=== PATIENT | female | born 1960 | race Two or more races ===

== ENCOUNTER 2023-01-21 12:34 | Inpatient (IN) | payer OTHER ==
[~2023-01-21] VITALS: Ht 154.9 cm; Wt 74.0 kg
[2023-01-21] MEDS: DEXTROSE (50%) 50ML SYRG IV ONE ×2 (12:47→13:04)
[2023-01-21 13:11] VITALS: PULSE 85; RESP 20; O2SAT 98
[2023-01-21 13:15] LABS: Basophils # (auto) 0 10 ^3/uL (0-0.2); Basophils % (auto) 0.1 % (0.0-2.0); Eosinophils # (auto) 0 10 ^3/uL (0-0.8); Eosinophils % (auto) 0.2 % (0.0-7.0); Hematocrit 33.5 % (36.0-46.0); Hemoglobin 10.6 g/dL (12.2-16.2); Lymphocytes # (auto) 2.9 10 ^3/uL (0.4-5.4); Lymphocytes % (auto) 18.5 % (10.0-50.0); Mean Corpuscular Hemoglobin 27.4 pg (28.0-32.0); Mean Corpuscular Hgb Conc. 31.5 g/dL (32.0-36.0); Monocytes # (auto) 1.1 10 ^3/uL (0-1.3); Monocytes % (auto) 7.3 % (0.0-12.0); Neutrophils # (auto) 11.5 10 ^3/uL (1.6-8.6); Neutrophils % (auto) 73.9 % (37.0-80.0); Red Blood Cells 3.86 10^6/uL (4.0-5.20); Red Cell Distribution Width 15.5 % (11.8-14.3); White Blood Cell 15.6 10^3/uL (4.4-10.8)
[2023-01-21] MEDS ORDERED: DEXTROSE 10% 1,000 ML IV ONE (13:15)
[2023-01-21] MEDS ORDERED: ACCU-CHEK COMFORT CURVE STRIP VI ONE (13:15)
[2023-01-21 13:32] LABS: Albumin 2.3 g/dL (3.4-5.0); Calcium 8.1 mg/dL (8.5-10.1); Potassium 3.9 mmol/L (3.5-5.1)
[2023-01-21 13:37] LABS: BUN/Creatinine Ratio 12.5 (10.0-20.0); Bilirubin, Total 0.3 mg/dL (0.2-1.0); Total Protein 7.1 g/dL (6.4-8.2)
[2023-01-21] MEDS ORDERED: ONDANSETRON HCL 4 MG/2 ML VIAL IV ONE (14:00)
[2023-01-21] MEDS ORDERED: ASPI1TAB20 PO (14:04)
[2023-01-21] MEDS ORDERED: ENAL1TAB48 PO (14:04)
[2023-01-21] MEDS ORDERED: METO25TA5 PO (14:04)
[2023-01-21] MEDS ORDERED: SIMV20TA20 PO (14:05)
[2023-01-21] MEDS ORDERED: GLIP10TA9 PO (14:05)
[2023-01-21] MEDS ORDERED: ENOXAPARIN SOD 80 MG/0.8ML SYRINGE SC ONE (14:30)
[2023-01-21 15:10] LABS: Urine Bacteria FEW /hpf (None Seen); Urine Blood Negative /uL (Negative); Urine Clarity Clear (Clear); Urine Color Colorless (Yellow); Urine Protein, UAD 1+ (Negative); Urine Specific Gravity 1.005 (1.001-1.035); Urine Urobilinogen Normal (Negative); Urine WBC 1 /hpf (0 - 5); Urine pH 5.5 (5.0-8.0)
[2023-01-21] MEDS ORDERED: metroNIDAZOLE 500MG/100ML 100 ML IV ONE (16:15)
[2023-01-21] MEDS ORDERED: SODIUM CHLORIDE 0.9% 500 ML IV ONE (16:15)
[2023-01-21] MEDS ORDERED: DEXTROSE (50%) 50ML SYRG IV PRN (16:15)
[2023-01-21] MEDS ORDERED: SODIUM CHLORIDE 0.9% 1,000 ML IV ONE (16:15)
[2023-01-21] MEDS ORDERED: PANTOPRAZOLE 40 MG/10 ML VIAL INJ IV ONE (16:30)
[2023-01-21 17:33] LABS: Cholesterol 93 mg/dL (< 200)
[2023-01-21 17:35] LABS: HDL Cholesterol 39 mg/dL (40-59); LDL Cholesterol 48 mg/dL (< 100); Triglycerides 57 mg/dL (< 150)
[2023-01-21] MEDS: InsuLIN REG 1unit/0.01ml Soln (100units/ml) SC SCH ×2 (17:57→21:19)
[2023-01-21] MEDS: SODIUM CHLORIDE 0.9% 1,000 ML IV SCH (17:59)
[2023-01-21] MEDS: ACCU-CHEK COMFORT CURVE STRIP VI SCH ×2 (17:59→21:18)
[2023-01-21 19:16] LABS: INR 1.11 (0.9-1.15); Prothrombin Time 11.6 sec (9.3-11.8)
[2023-01-21 19:50] VITALS: PULSE 77; RESP 18; O2SAT 96
[2023-01-21] MEDS: metroNIDAZOLE 500MG/100ML 100 ML IV SCH (20:41)
[2023-01-22 05:41] LABS: Basophils # (auto) 0 10 ^3/uL (0-0.2); Basophils % (auto) 0.3 % (0.0-2.0); Eosinophils # (auto) 0.1 10 ^3/uL (0-0.8); Eosinophils % (auto) 0.7 % (0.0-7.0); Hematocrit 32.5 % (36.0-46.0); Hemoglobin 10.2 g/dL (12.2-16.2); Lymphocytes # (auto) 2.5 10 ^3/uL (0.4-5.4); Lymphocytes % (auto) 20.5 % (10.0-50.0); Mean Corpuscular Hgb Conc. 31.3 g/dL (32.0-36.0); Mean Corpuscular Volume 86.2 fL (80.0-100.0); Monocytes % (auto) 8.1 % (0.0-12.0); Neutrophils # (auto) 8.8 10 ^3/uL (1.6-8.6); Neutrophils % (auto) 70.4 % (37.0-80.0); Red Blood Cells 3.77 10^6/uL (4.0-5.20); Red Cell Distribution Width 15.6 % (11.8-14.3); White Blood Cell 12.4 10^3/uL (4.4-10.8)
[2023-01-22 06:01] LABS: Calcium 8.3 mg/dL (8.5-10.1); Potassium 4.4 mmol/L (3.5-5.1)
[2023-01-22 06:05] LABS: BUN/Creatinine Ratio 11.2 (10.0-20.0); Bilirubin, Total 0.3 mg/dL (0.2-1.0); Total Protein 7.1 g/dL (6.4-8.2)
[2023-01-22] MEDS: metroNIDAZOLE 500MG/100ML 100 ML IV SCH ×3 (06:11→22:59)
[2023-01-22] MEDS: InsuLIN REG 1unit/0.01ml Soln (100units/ml) SC SCH ×4 (06:55→22:00)
[2023-01-22] MEDS: ACCU-CHEK COMFORT CURVE STRIP VI SCH ×4 (06:55→22:57)
[2023-01-22 08:10] VITALS: PULSE 80; RESP 14; O2SAT 99
[2023-01-22] MEDS: ATORVASTATIN 20 MG TAB PO SCH ×2 (10:00→22:00)
[2023-01-22] MEDS: PANTOPRAZOLE 40 MG/10 ML VIAL INJ IV SCH (12:15)
[2023-01-22] MEDS: ENOXAPARIN SOD 40 MG/0.4 ML SYRINGE SC SCH (12:15)
[2023-01-22] MEDS: ASPirin-EC 81 mg tab PO SCH (12:16)
[2023-01-22] MEDS: METOPROLOL TARTRATE 25 MG TAB PO SCH (12:16)
[2023-01-22] MEDS: SODIUM CHLORIDE 0.9% 1,000 ML IV SCH (12:17)
[2023-01-22 22:06] VITALS: BP 136/59; PULSE 77; RESP 20; TEMP 94.4; O2SAT 96
[2023-01-23] VITALS (7 sets, daily range): BP systolic 136–141; BP diastolic 54–91; PULSE 67–84; RESP 17–20; TEMP 97.9–98.2; O2SAT 97–99
[2023-01-23] MEDS: SODIUM CHLORIDE 0.9% 1,000 ML IV SCH ×2 (01:35→18:15)
[2023-01-23] MEDS: metroNIDAZOLE 500MG/100ML 100 ML IV SCH ×3 (06:32→21:40)
[2023-01-23] MEDS: InsuLIN REG 1unit/0.01ml Soln (100units/ml) SC SCH ×4 (06:36→21:37)
[2023-01-23] MEDS: ACCU-CHEK COMFORT CURVE STRIP VI SCH ×4 (06:36→21:37)
[2023-01-23 09:03] LABS: Basophils # (auto) 0.1 10 ^3/uL (0-0.2); Basophils % (auto) 0.7 % (0.0-2.0); Eosinophils # (auto) 0.2 10 ^3/uL (0-0.8); Hematocrit 31.1 % (36.0-46.0); Hemoglobin 9.9 g/dL (12.2-16.2); Lymphocytes # (auto) 2.4 10 ^3/uL (0.4-5.4); Lymphocytes % (auto) 26.8 % (10.0-50.0); Mean Corpuscular Hemoglobin 27.5 pg (28.0-32.0); Mean Corpuscular Hgb Conc. 31.9 g/dL (32.0-36.0); Mean Corpuscular Volume 86.3 fL (80.0-100.0); Monocytes # (auto) 0.7 10 ^3/uL (0-1.3); Monocytes % (auto) 7.2 % (0.0-12.0); Neutrophils # (auto) 5.7 10 ^3/uL (1.6-8.6); Neutrophils % (auto) 63.3 % (37.0-80.0); Nucleated Red Blood Cells % 0.1 %; Red Blood Cells 3.61 10^6/uL (4.0-5.20); Red Cell Distribution Width 15.7 % (11.8-14.3); White Blood Cell 9.1 10^3/uL (4.4-10.8)
[2023-01-23 09:35] LABS: Calcium 8.4 mg/dL (8.5-10.1); Potassium 4.3 mmol/L (3.5-5.1)
[2023-01-23 09:37] LABS: BUN/Creatinine Ratio 16.5 (10.0-20.0)
[2023-01-23] MEDS: cefTRIAXone 1GM/50ML D5W 50 ML IV SCH (09:37)
[2023-01-23] MEDS: ENOXAPARIN SOD 40 MG/0.4 ML SYRINGE SC SCH (09:37)
[2023-01-23] MEDS: PANTOPRAZOLE 40 MG/10 ML VIAL INJ IV SCH (09:37)
[2023-01-23] MEDS: METOPROLOL TARTRATE 25 MG TAB PO SCH (09:46)
[2023-01-23] MEDS: ASPirin-EC 81 mg tab PO SCH (09:46)
[2023-01-23] MEDS: ATORVASTATIN 20 MG TAB PO SCH (21:39)
[2023-01-24 05:00] VITALS: BP 126/75; PULSE 92; RESP 18; TEMP 97.7; O2SAT 99
[2023-01-24] MEDS: ACCU-CHEK COMFORT CURVE STRIP VI SCH ×4 (05:19→22:00)
[2023-01-24] MEDS: InsuLIN REG 1unit/0.01ml Soln (100units/ml) SC SCH ×4 (05:19→23:17)
[2023-01-24] MEDS: metroNIDAZOLE 500MG/100ML 100 ML IV SCH ×3 (05:32→21:18)
[2023-01-24 06:35] LABS: INR 1.1 (0.9-1.15); Partial Thromboplastin Time 27.7 SEC (24.5-34.5); Prothrombin Time 11.5 sec (9.3-11.8)
[2023-01-24 07:53] LABS: Monocytes # (auto) 0.6 10 ^3/uL (0-1.3); Red Blood Cells 4.22 10^6/uL (4.0-5.20)
[2023-01-24 07:55] LABS: Basophils # (auto) 0 10 ^3/uL (0-0.2); Basophils % (auto) 0.5 % (0.0-2.0); Eosinophils # (auto) 0.1 10 ^3/uL (0-0.8); Eosinophils % (auto) 1.1 % (0.0-7.0); Hematocrit 36.6 % (36.0-46.0); Hemoglobin 11.8 g/dL (12.2-16.2); Lymphocytes # (auto) 4.3 10 ^3/uL (0.4-5.4); Lymphocytes % (auto) 43.2 % (10.0-50.0); Mean Corpuscular Hemoglobin 27.9 pg (28.0-32.0); Mean Corpuscular Hgb Conc. 32.1 g/dL (32.0-36.0); Mean Corpuscular Volume 86.8 fL (80.0-100.0); Monocytes % (auto) 5.9 % (0.0-12.0); Neutrophils # (auto) 4.9 10 ^3/uL (1.6-8.6); Neutrophils % (auto) 49.3 % (37.0-80.0); Nucleated Red Blood Cells % 0.2 %; Red Cell Distribution Width 16.2 % (11.8-14.3)
[2023-01-24 07:56] LABS: Albumin 2.6 g/dL (3.4-5.0); Calcium 8.9 mg/dL (8.5-10.1)
[2023-01-24 07:59] LABS: BUN/Creatinine Ratio 15.5 (10.0-20.0); Bilirubin, Total 0.3 mg/dL (0.2-1.0); Total Protein 8.5 g/dL (6.4-8.2)
[2023-01-24 08:00] VITALS: PULSE 78; RESP 20
[2023-01-24] MEDS: PANTOPRAZOLE 40 MG/10 ML VIAL INJ IV SCH (09:14)
[2023-01-24] MEDS: METOPROLOL TARTRATE 25 MG TAB PO SCH (09:14)
[2023-01-24] MEDS: cefTRIAXone 1GM/50ML D5W 50 ML IV SCH (09:14)
[2023-01-24] MEDS: ASPirin-EC 81 mg tab PO SCH (10:00)
[2023-01-24] MEDS: ENOXAPARIN SOD 40 MG/0.4 ML SYRINGE SC SCH (10:00)
[2023-01-24 11:10] VITALS: BP 166/76; PULSE 78; RESP 20; TEMP 97.9; O2SAT 95
[2023-01-24] MEDS: SODIUM CHLORIDE 0.9% 1,000 ML IV SCH (11:13)
[2023-01-24 11:56] VITALS: BP 166/76; PULSE 78; RESP 20; TEMP 97.9; O2SAT 95
[2023-01-24] MEDS ORDERED: LIDOCAINE W/ EPINEPHRINE 1% 20ML VIAL ONE (12:05)
[2023-01-24] MEDS ORDERED: BUPIVACAINE 0.25% INJ 50ML VIAL ONE (12:05)
[2023-01-24] MEDS ORDERED: ACCU-CHEK COMFORT CURVE STRIP VI ONE (12:45)
[2023-01-24] MEDS ORDERED: HYDROmorphone HCL 2 MG/ML VL/or syr IV PRN (12:45)
[2023-01-24] MEDS ORDERED: METOCLOPRAMIDE HCL 5MG/ml INJ 2ml VIAL IV PRN (12:45)
[2023-01-24] MEDS ORDERED: MORPHINE SULFATE INJ 2 MG/ml SYRG IV PRN (12:45)
[2023-01-24] MEDS ORDERED: POVIDONE IODINE 10 % TOPICAL OINT 30GM TOP ONE (14:01)
[2023-01-24] MEDS: HYDROmorphone HCL 2 MG/ML VL/or syr IV PRN ×2 (14:35→14:48)
[2023-01-24] MEDS ORDERED: HYDROmorphone HCL 2 MG/ML VL/or syr IV ONE ×2 (14:58→15:10)
[2023-01-24] MEDS: HYDROcodone-ACET 5/325MG TAB PO PRN (16:16)
[2023-01-24] MEDS: ONDANSETRON HCL 4 MG/2 ML VIAL IV PRN (16:22)
[2023-01-24] MEDS: D5W/SOD CHL 0.45%/KCL 20MEQ 1,000 ML IV SCH ×2 (18:39→22:50)
[2023-01-24 20:00] VITALS: PULSE 78; RESP 20
[2023-01-24] MEDS: ATORVASTATIN 20 MG TAB PO SCH (21:18)
[2023-01-24 22:00] VITALS: BP 132/61; PULSE 104; RESP 19; TEMP 97.9; O2SAT 93
[2023-01-25] MEDS: ONDANSETRON HCL 4 MG/2 ML VIAL IV PRN (03:55)
[2023-01-25] MEDS: HYDROmorphone HCL 2 MG/ML VL/or syr IV PRN ×2 (03:56→21:45)
[2023-01-25 05:00] VITALS: BP_SYST 116; BP_SYST 147; BP_DIAS 61; BP_DIAS 72; PULSE 72; PULSE 97; RESP 17; RESP 18; TEMP 97.8; TEMP 98; O2SAT 96
[2023-01-25] MEDS: metroNIDAZOLE 500MG/100ML 100 ML IV SCH ×3 (05:08→21:33)
[2023-01-25] MEDS: ACCU-CHEK COMFORT CURVE STRIP VI SCH ×4 (06:11→21:51)
[2023-01-25] MEDS: InsuLIN REG 1unit/0.01ml Soln (100units/ml) SC SCH ×4 (06:12→21:50)
[2023-01-25 06:37] LABS: Basophils # (auto) 0 10 ^3/uL (0-0.2); Basophils % (auto) 0.2 % (0.0-2.0); Eosinophils # (auto) 0 10 ^3/uL (0-0.8); Hematocrit 29.9 % (36.0-46.0); Hemoglobin 9.7 g/dL (12.2-16.2); Lymphocytes # (auto) 2.1 10 ^3/uL (0.4-5.4); Lymphocytes % (auto) 10.6 % (10.0-50.0); Mean Corpuscular Hemoglobin 27.7 pg (28.0-32.0); Mean Corpuscular Hgb Conc. 32.3 g/dL (32.0-36.0); Mean Corpuscular Volume 85.8 fL (80.0-100.0); Monocytes # (auto) 1.1 10 ^3/uL (0-1.3); Monocytes % (auto) 5.7 % (0.0-12.0); Neutrophils # (auto) 16.4 10 ^3/uL (1.6-8.6); Neutrophils % (auto) 83.5 % (37.0-80.0); Red Blood Cells 3.48 10^6/uL (4.0-5.20); White Blood Cell 19.6 10^3/uL (4.4-10.8)
[2023-01-25 06:49] LABS: BUN/Creatinine Ratio 16.3 (10.0-20.0); Calcium 8.2 mg/dL (8.5-10.1); Potassium 4.5 mmol/L (3.5-5.1)
[2023-01-25 08:00] VITALS: PULSE 93; RESP 20; O2SAT 93
[2023-01-25] MEDS: cefTRIAXone 1GM/50ML D5W 50 ML IV SCH (08:45)
[2023-01-25] MEDS: PANTOPRAZOLE 40 MG/10 ML VIAL INJ IV SCH (08:49)
[2023-01-25] MEDS: D5W/SOD CHL 0.45%/KCL 20MEQ 1,000 ML IV SCH (09:02)
[2023-01-25] MEDS: ASPirin-EC 81 mg tab PO SCH (10:31)
[2023-01-25] MEDS: ENOXAPARIN SOD 40 MG/0.4 ML SYRINGE SC SCH (10:32)
[2023-01-25] MEDS: METOPROLOL TARTRATE 25 MG TAB PO SCH (10:32)
[2023-01-25] MEDS: HYDROcodone-ACET 5/325MG TAB PO PRN ×2 (10:53→18:49)
[2023-01-25] MEDS: SODIUM CHLORIDE 0.9% 1,000 ML IV SCH ×2 (12:59→21:00)
[2023-01-25 16:40] VITALS: BP 130/60; PULSE 94; RESP 20; TEMP 98.8; O2SAT 94
[2023-01-25 16:44] VITALS: BP 130/60; PULSE 94; RESP 20; TEMP 98.8; O2SAT 94
[2023-01-25 20:00] VITALS: PULSE 93; RESP 20; O2SAT 93
[2023-01-25] MEDS: ATORVASTATIN 20 MG TAB PO SCH (21:33)
[2023-01-25 22:00] VITALS: BP 150/74; PULSE 87; RESP 17; TEMP 98.2; O2SAT 93
[2023-01-26] VITALS (7 sets, daily range): BP systolic 126–162; BP diastolic 59–83; PULSE 78–110; RESP 14–20; TEMP 97.3–98.6; O2SAT 92–98
[2023-01-26] MEDS: ONDANSETRON HCL 4 MG/2 ML VIAL IV PRN ×2 (04:07→23:09)
[2023-01-26] MEDS: HYDROmorphone HCL 2 MG/ML VL/or syr IV PRN ×2 (04:14→23:10)
[2023-01-26 04:27] LABS: Hematocrit 31.4 % (36.0-46.0); Hemoglobin 10.1 g/dL (12.2-16.2); Mean Corpuscular Hemoglobin 27.7 pg (28.0-32.0); Mean Corpuscular Hgb Conc. 32.1 g/dL (32.0-36.0); Mean Corpuscular Volume 86.5 fL (80.0-100.0); Red Blood Cells 3.63 10^6/uL (4.0-5.20); Red Cell Distribution Width 16.3 % (11.8-14.3); White Blood Cell 21.3 10^3/uL (4.4-10.8)
[2023-01-26 04:29] LABS: Basophils % (manual) 0 (0.0-2.0); Blast Cells 0; Eosinophils % (manual) 0 (0-7); Metamyelocytes % 0; Myelocytes % 0; Promyelocytes % 0; Reactive Lymphocytes 0
[2023-01-26 04:47] LABS: Albumin 2.3 g/dL (3.4-5.0); Calcium 8.2 mg/dL (8.5-10.1); Potassium 4.2 mmol/L (3.5-5.1)
[2023-01-26 04:50] LABS: Bilirubin, Total 0.2 mg/dL (0.2-1.0); Total Protein 6.9 g/dL (6.4-8.2)
[2023-01-26] MEDS: metroNIDAZOLE 500MG/100ML 100 ML IV SCH ×3 (05:56→21:44)
[2023-01-26] MEDS: InsuLIN REG 1unit/0.01ml Soln (100units/ml) SC SCH ×5 (06:30→22:02)
[2023-01-26] MEDS: ACCU-CHEK COMFORT CURVE STRIP VI SCH ×4 (06:35→21:44)
[2023-01-26 07:51] LABS: Band Neutrophils % (manual) 3; Lymphocytes % (manual) 7 (10.0-50.0); Monocytes % (manual) 5 (0-12)
[2023-01-26 07:52] LABS: Platelet Estimate Adequate
[2023-01-26] MEDS: SODIUM CHLORIDE 0.9% 1,000 ML IV SCH ×2 (08:27→17:32)
[2023-01-26] MEDS: cefTRIAXone 1GM/50ML D5W 50 ML IV SCH (08:27)
[2023-01-26] MEDS: PANTOPRAZOLE 40 MG/10 ML VIAL INJ IV SCH (08:27)
[2023-01-26] MEDS ORDERED: ENOXAPARIN SOD 30 MG/0.3 ML SYRINGE SC SCH (10:00)
[2023-01-26] MEDS: ASPirin-EC 81 mg tab PO SCH (10:23)
[2023-01-26] MEDS: METOPROLOL TARTRATE 25 MG TAB PO SCH (10:23)
[2023-01-26 15:30] LABS: Creatinine, Urine 96 mg/dL (30.0-125.0); Sodium Urine 47 mmol/L (40-220)
[2023-01-26] MEDS: ACETAMINOPHEN 325 MG TAB PO PRN (15:44)
[2023-01-26] MEDS: ATORVASTATIN 20 MG TAB PO SCH (21:36)
[2023-01-27] MEDS: SODIUM CHLORIDE 0.9% 1,000 ML IV SCH (02:36)
[2023-01-27 05:00] VITALS: BP 165/74; PULSE 85; RESP 18; TEMP 97.9; O2SAT 94
[2023-01-27] MEDS: ONDANSETRON HCL 4 MG/2 ML VIAL IV PRN (05:04)
[2023-01-27] MEDS: HYDROmorphone HCL 2 MG/ML VL/or syr IV PRN (05:15)
[2023-01-27] MEDS: metroNIDAZOLE 500MG/100ML 100 ML IV SCH ×3 (05:16→21:17)
[2023-01-27] MEDS: ACCU-CHEK COMFORT CURVE STRIP VI SCH ×4 (06:24→21:29)
[2023-01-27 06:41] LABS: Basophils # (auto) 0.1 10 ^3/uL (0-0.2); Basophils % (auto) 0.3 % (0.0-2.0); Eosinophils # (auto) 0.1 10 ^3/uL (0-0.8); Eosinophils % (auto) 0.5 % (0.0-7.0); Hematocrit 30.1 % (36.0-46.0); Hemoglobin 9.5 g/dL (12.2-16.2); Lymphocytes # (auto) 2.2 10 ^3/uL (0.4-5.4); Mean Corpuscular Hemoglobin 27.4 pg (28.0-32.0); Mean Corpuscular Hgb Conc. 31.5 g/dL (32.0-36.0); Mean Corpuscular Volume 86.9 fL (80.0-100.0); Monocytes # (auto) 0.9 10 ^3/uL (0-1.3); Monocytes % (auto) 5.1 % (0.0-12.0); Neutrophils # (auto) 13.4 10 ^3/uL (1.6-8.6); Neutrophils % (auto) 81.1 % (37.0-80.0); Red Blood Cells 3.47 10^6/uL (4.0-5.20); White Blood Cell 16.6 10^3/uL (4.4-10.8)
[2023-01-27 06:56] LABS: Potassium 4.8 mmol/L (3.5-5.1)
[2023-01-27 07:04] LABS: BUN/Creatinine Ratio 14.4 (10.0-20.0); Bilirubin, Total 0.3 mg/dL (0.2-1.0); Calcium 7.9 mg/dL (8.5-10.1); Total Protein 5.8 g/dL (6.4-8.2)
[2023-01-27] MEDS: PANTOPRAZOLE 40 MG/10 ML VIAL INJ IV SCH (09:02)
[2023-01-27] MEDS: ASPirin-EC 81 mg tab PO SCH (09:02)
[2023-01-27] MEDS: ENOXAPARIN SOD 40 MG/0.4 ML SYRINGE SC SCH (09:02)
[2023-01-27] MEDS: cefTRIAXone 1GM/50ML D5W 50 ML IV SCH (09:02)
[2023-01-27] MEDS: METOPROLOL TARTRATE 25 MG TAB PO SCH (09:04)
[2023-01-27 09:06] VITALS: BP 172/70; PULSE 99; RESP 17; TEMP 98.2; O2SAT 94
[2023-01-27] MEDS: InsuLIN REG 1unit/0.01ml Soln (100units/ml) SC SCH ×3 (11:27→21:29)
[2023-01-27 13:00] VITALS: BP 159/78; PULSE 76; RESP 17; TEMP 98; O2SAT 97
[2023-01-27 17:06] VITALS: BP 159/108; PULSE 78; RESP 18; TEMP 97.9; O2SAT 97
[2023-01-27] MEDS: ATORVASTATIN 20 MG TAB PO SCH (21:17)
[2023-01-27 22:00] VITALS: BP 143/69; PULSE 81; RESP 18; TEMP 98.4; O2SAT 98
[2023-01-28 05:00] VITALS: BP 142/65; PULSE 68; RESP 18; TEMP 97.7; O2SAT 99
[2023-01-28] MEDS: metroNIDAZOLE 500MG/100ML 100 ML IV SCH ×2 (06:22→14:37)
[2023-01-28] MEDS: ACCU-CHEK COMFORT CURVE STRIP VI SCH ×4 (06:44→17:25)
[2023-01-28] MEDS: InsuLIN REG 1unit/0.01ml Soln (100units/ml) SC SCH ×3 (06:44→17:25)
[2023-01-28] MEDS ORDERED: ENALAPRIL MALEATE 10 MG TAB PO SCH (08:00)
[2023-01-28 08:49] LABS: Basophils # (auto) 0.1 10 ^3/uL (0-0.2); Basophils % (auto) 0.6 % (0.0-2.0); Eosinophils # (auto) 0.3 10 ^3/uL (0-0.8); Hematocrit 30.5 % (36.0-46.0); Hemoglobin 9.7 g/dL (12.2-16.2); Lymphocytes # (auto) 2.7 10 ^3/uL (0.4-5.4); Lymphocytes % (auto) 21.5 % (10.0-50.0); Mean Corpuscular Hemoglobin 27.3 pg (28.0-32.0); Mean Corpuscular Hgb Conc. 31.9 g/dL (32.0-36.0); Mean Corpuscular Volume 85.8 fL (80.0-100.0); Monocytes # (auto) 0.7 10 ^3/uL (0-1.3); Monocytes % (auto) 5.7 % (0.0-12.0); Neutrophils # (auto) 8.9 10 ^3/uL (1.6-8.6); Neutrophils % (auto) 70.2 % (37.0-80.0); Nucleated Red Blood Cells % 0.1 %; Red Blood Cells 3.55 10^6/uL (4.0-5.20); Red Cell Distribution Width 16.3 % (11.8-14.3); White Blood Cell 12.7 10^3/uL (4.4-10.8)
[2023-01-28 09:00] VITALS: BP 160/93; PULSE 96; RESP 22; TEMP 97.7; O2SAT 98
[2023-01-28 09:15] LABS: Potassium 4.4 mmol/L (3.5-5.1)
[2023-01-28 09:32] LABS: BUN/Creatinine Ratio 10.1 (10.0-20.0); Calcium 8.1 mg/dL (8.7-10.4)
[2023-01-28] MEDS ORDERED: METR-344 PO (09:41)
[2023-01-28] MEDS ORDERED: CIPR-173 PO (09:41)
[2023-01-28] MEDS ORDERED: HYDR-4902 PO (09:41)
[2023-01-28] MEDS: ASPirin-EC 81 mg tab PO SCH (09:42)
[2023-01-28] MEDS: cefTRIAXone 1GM/50ML D5W 50 ML IV SCH (09:43)
[2023-01-28] MEDS: ENOXAPARIN SOD 40 MG/0.4 ML SYRINGE SC SCH (09:43)
[2023-01-28] MEDS: PANTOPRAZOLE 40 MG/10 ML VIAL INJ IV SCH (09:43)
[2023-01-28] MEDS: METOPROLOL TARTRATE 25 MG TAB PO SCH (09:43)
[2023-01-28 13:00] VITALS: BP 177/83; PULSE 81; RESP 14; TEMP 97.2; O2SAT 99
[2023-01-28] MEDS: ACETAMINOPHEN 325 MG TAB PO PRN (14:37)
[2023-01-28] MEDS ORDERED: hydrALAZINE HCL 20 MG/ML VL IV ONE (16:30)
[2023-01-28 17:00] VITALS: BP 137/67; PULSE 73; RESP 17; TEMP 98.6; O2SAT 98
== END 2023-01-28 20:30 | disposition home or self-care (01) | DRG 263 ==
LOC: ER 12:34 → OVERFLOW 16:14 → CENTRAL 01-22 21:10
PROVIDERS: ADMIT Internal Medicine Pulmonary Disease
PROC: 0FJ44ZZ Inspection of Gallbladder, Percutaneous Endoscopic Approach (ICD-10-PCS; 2023-01-24)
PROC: 0FT40ZZ Resection of Gallbladder, Open Approach (ICD-10-PCS; principal; 2023-01-24 12:45)
DX: K80.01 Calculus of gallbladder with acute cholecystitis with obstruction (principal); E87.1 Hypo-osmolality and hyponatremia; I24.8 Other forms of acute ischemic heart disease; E11.65 Type 2 diabetes mellitus with hyperglycemia; E86.0 Dehydration; E66.01 Morbid (severe) obesity due to excess calories; I10 Essential (primary) hypertension; Z86.73 Personal history of transient ischemic attack (TIA), and cerebral infarction without residual deficits; Z68.30 Body mass index [BMI] 30.0-30.9, adult; Z79.82 Long term (current) use of aspirin
CPT/HCPCS: 36415; 71045; 74176; 74181; 78226; 80048; 80053; 80061; 81001; 82570; 82962; 83036; 83690; 84300; 84443; 84484; 85007; 85025; 85027; 85610; 85730; 86850; 86900; 86901; 87070; 87075; 87205; 93005; 96372; 96374; 96375; 97110; 97116; 97163; 97530; 99291; C9113; G0378; J0696; J1815; J2405; J3490

== ENCOUNTER 2023-11-02 10:14 | Emergency (ER) | payer OTHER ==
[~2023-11-02] VITALS: Ht 160 cm; Wt 72.7 kg
[~2023-11-02 10:14] MED LIST: ASPI1TAB20 PO; CIPR-173 PO; ENAL1TAB48 PO; GLIP10TA9 PO; HYDR-4902 PO; METO25TA5 PO; METR-344 PO; SIMV20TA20 PO
[2023-11-02 11:59] VITALS: BP 172/82; PULSE 67; RESP 18; TEMP 98.2; O2SAT 99
[2023-11-02] MEDS: HYDROcodone-ACET 5/325MG TAB PO ONE (13:05)
[2023-11-02] MEDS ORDERED: NABU-72 PO (13:10)
== END 2023-11-02 13:17 | disposition home or self-care (01) ==
LOC: ER 10:14
DX: M25.561 Pain in right knee (principal); E11.9 Type 2 diabetes mellitus without complications; W18.09XA Striking against other object with subsequent fall, initial encounter; Y93.89 Activity, other specified; Y92.89 Other specified places as the place of occurrence of the external cause; Y99.8 Other external cause status
CPT/HCPCS: 29505; 73562